=== PATIENT | female | born 1995 | race American Indian/Alaskan Native ===

== ENCOUNTER 2016-09-02 15:15 | Emergency (ER) | payer OTHER, BC ==
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
[2016-09-02] MEDS ORDERED: BOOSTRIX IM ONE (17:03)
[2016-09-02] MEDS ORDERED: NORCO 7.5/325 PO ONE (17:03)
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
[2016-09-02 23:20] VITALS: BP 126/71
== END 2016-09-02 20:37 | disposition home or self-care (01) ==
LOC: ED 15:15
DX: S09.90XA Unspecified injury of head, initial encounter (principal); M54.2 Cervicalgia; M79.651 Pain in right thigh; F17.200 Nicotine dependence, unspecified, uncomplicated; V89.2XXA Person injured in unspecified motor-vehicle accident, traffic, initial encounter; Y93.89 Activity, other specified; Y99.8 Other external cause status; Y92.488 Other paved roadways as the place of occurrence of the external cause
CPT/HCPCS: 70450; 72125; 81025; 90471; 90715